=== PATIENT | female | born 1970 | race Caucasian/White ===

== ENCOUNTER 2019-01-28 10:46 | Outpatient (CLI) | payer BC ==
--- NOTE | 2019-01-28 11:10 | RAD ---
XR Hip Lt 2-3 View HISTORY: Left hip pain FINDINGS: No fracture or dislocation is identified.
--- NOTE | 2019-01-28 14:12 | RAD ---
RIGHT HIP TWO VIEWS: HISTORY: Hip pain. FINDINGS: Femoral head contour is normal. Mild degenerative change with possibly some minimal spurring from the femoral head. Joint space appears normal. IMPRESSION: 1. No acute finding. 2. Possible mild degenerative change. POS: [facility]
== END 2019-01-28 10:47 | disposition home or self-care (01) ==
LOC: BICRAD 10:46
PROVIDERS: ATTEND Physician Assistant Medical
DX: M25.551 Pain in right hip (principal); M25.552 Pain in left hip
CPT/HCPCS: 36415; 80053; 83520; 85025; 85652; 86140

== ENCOUNTER 2019-02-04 13:38 | Outpatient (CLI) | payer BC ==
--- NOTE | 2019-02-04 14:21 | MMO ---
Bilateral MAMMO Bilat Screen [facility]. CLINICAL HISTORY: Patient is 48 years old and is seen for screening. The patient has no family history of breast cancer. The patient has no personal history of cancer. The patient has a history of left Ultrasound Guided Core Biopsy at age 42 - benign. VIEWS: The views performed were: bilateral craniocaudal with tomosynthesis and bilateral mediolateral oblique with tomosynthesis. FILMS COMPARED: The present examination has been compared to a prior imaging study performed at [facility] on 01/06/2018. This study has been interpreted with the assistance of computer-aided detection. MAMMOGRAM FINDINGS: There are scattered fibroglandular densities. There are no suspicious masses, suspicious calcifications, or new areas of architectural distortion. IMPRESSION: THERE IS NO MAMMOGRAPHIC EVIDENCE OF MALIGNANCY. A ROUTINE FOLLOW-UP MAMMOGRAM IN 1 YEAR IS RECOMMENDED. THE RESULTS OF THIS EXAM WERE SENT TO THE PATIENT. ACR BI-RADS Category 1 - Negative MAMMOGRAPHY NOTE: 1. A negative mammogram report should not delay a biopsy if a dominant of clinically suspicious mass is present. 2. Approximately 10% to 15% of breast cancers are not detected by mammography. 3. Adenosis and dense breasts may obscure an underlying neoplasm. Reported by: SAVAGE MERCADO MD Electonically Signed: [id number]
== END 2019-02-04 13:39 | disposition home or self-care (01) ==
LOC: BICMAMMO 13:38
PROVIDERS: ATTEND Obstetrics & Gynecology
DX: Z12.31 Encounter for screening mammogram for malignant neoplasm of breast (principal); Z91.89 Other specified personal risk factors, not elsewhere classified
CPT/HCPCS: 77063; 77067

== ENCOUNTER 2021-04-25 08:43 | Outpatient (CLI) | payer BC ==
[2021-04-25 21:44] LABS: SARS-CoV-2 PCR by NAA Not Detected (NotDetected)
== END 2021-04-25 08:44 | disposition home or self-care (01) ==
LOC: LABBT 08:43
PROVIDERS: ATTEND Student in an Organized Health Care Education/Training Program
DX: Z01.812 Encounter for preprocedural laboratory examination (principal); G44.209 Tension-type headache, unspecified, not intractable; Z20.822 Contact with and (suspected) exposure to COVID-19
CPT/HCPCS: U0003; U0005

== ENCOUNTER 2021-04-30 12:58 | Outpatient (CLI) | payer BC | END 2021-04-30 12:59 | disposition home or self-care (01) | LOC: RAD 12:58 | PROVIDERS: ATTEND Student in an Organized Health Care Education/Training Program | DX: R49.0 Dysphonia (principal); J35.1 Hypertrophy of tonsils | CPT/HCPCS: 70491; 74220 ==

== ENCOUNTER 2023-06-02 10:23 | Outpatient (CLI) | payer BC | END 2023-06-02 10:24 | disposition home or self-care (01) | LOC: BICRAD 10:23 | PROVIDERS: ATTEND Internal Medicine Rheumatology | DX: R76.0 Raised antibody titer (principal); M54.16 Radiculopathy, lumbar region; K11.7 Disturbances of salivary secretion; M25.50 Pain in unspecified joint; R53.83 Other fatigue ==

== ENCOUNTER 2024-05-06 13:17 | Outpatient (CLI) | payer BC | END 2024-05-06 13:18 | disposition home or self-care (01) | LOC: BICRAD 13:17 | PROVIDERS: ATTEND Internal Medicine Rheumatology | DX: R76.0 Raised antibody titer (principal); M79.672 Pain in left foot; M19.072 Primary osteoarthritis, left ankle and foot; M19.042 Primary osteoarthritis, left hand; M19.041 Primary osteoarthritis, right hand ==